=== PATIENT | male | born 1950 | race Caucasian/White ===

== ENCOUNTER 2021-12-29 10:04 | Emergency (ER) | payer OTHER ==
[~2021-12-29] VITALS: Ht 175.3 cm; Wt 82.0 kg
[2021-12-29 10:07] VITALS: BP 124/73
== END 2021-12-29 10:43 | disposition home or self-care (01) ==
LOC: ER 10:04
DX: R68.84 Jaw pain (principal); R22.0 Localized swelling, mass and lump, head; Z98.818 Other dental procedure status
CPT/HCPCS: 99281